=== PATIENT | male | born 1940 | race Caucasian/White ===

== ENCOUNTER 2016-10-02 11:42 | Observation (INO) ==
--- NOTE | 2016-10-02 12:13 | Emergency Department Note ---
Disposition Clinical Impression: Atypical chest pain, Elevated troponin Disposition: Admitted As Inpatient Condition: Good Referrals: Paola Marks, HYPERTRICHOLOGIST [Primary Care Provider] - Forms: ED Satisfaction Letter Time of Disposition: 13:50 General Adult HPI - General Chief complaint: ED Recheck/Abnormal Lab/Rx Stated complaint: nausea Time Seen by Provider: 10/02/16 12:09 Source: patient, family Limitations: no limitations Nursing Notes Reviewed: Yes Vital Signs Reviewed: Yes - History of Present Illness HPI Narrative: 76-year-old male presenting to the emergency department. Yesterday he was at the [place] emergency department where he went in with uncontrollable nausea. Due to his cardiac history, they were concerned for a cardiac event and therefore they did blood work, chest x-ray, and EKG. According to the patient the troponin was slightly increased. The [place] emergency department wanted to transfer him to [place] where he refused and signed out AMA. Today he spoke with his veneer manufacturer who stated he should return to the emergency department and get a further workup. He is in no pain at the moment. He is no longer nauseous. He has no complaints. He had a previous CABG and stent placement in January. He states with his previous cardiac event he felt bilateral shoulder pain. He did not feel the symptoms during this episode. He states he is currently on anticoagulation but does not know the name of it. He states "it is like taking a very big aspirin". Pain Scale: 0 - Related Data Home Medications Medication Instructions Recorded Confirmed Lisinopril [Zestril] 20 mg PO DAILY 10/02/16 10/02/16 Metoprolol [Lopressor] 25 mg PO BID 10/02/16 10/02/16 hydroCHLOROthiazide 12.5 mg PO DAILY 10/02/16 10/02/16 [Hydrochlorothiazide] Previous Rx's Medication Instructions Recorded Aspirin Enteric Coated [Aspirin EC] 81 mg PO DAILY tablet. 02/26/16 Atorvastatin [Lipitor] 40 mg PO HS #30 tablet 02/26/16 Clopidogrel [Plavix] 75 mg PO DAILY #30 tablet 02/26/16 Nitroglycerin 0.4 mg SL Q5MIN PRN #30 tab.subl 02/26/16 Tamsulosin [Flomax] 0.4 mg PO HS #30 capsule 02/26/16 Allergies Allergy/AdvReac Type Severity Reaction Status Date / Time No Known Allergies Allergy Verified 10/02/16 12:02 Constitutional: Denies: fever, chills, weakness Eyes: Reports: as per HPI ENT ED: Reports: as per HPI Cardiovascular: Denies: chest pain, palpitations, dyspnea on exertion Respiratory: Denies: cough, dyspnea, wheezes Gastrointestinal: Denies: abdominal pain, nausea, vomiting, diarrhea, constipation, hematemesis, melena, hematochezia Genitourinary: Reports: as per HPI Musculoskeletal: Reports: as per HPI Integumentary: Reports: as per HPI Neurological: Denies: headache, weakness Psychiatric: Reports: as per HPI Endocrine: Reports: as per HPI Hematological/Lymphatic: Reports: as per HPI Allergic/Immunologic: Reports: as per HPI Past Medical History - Past Medical History Medical history: Reports: arthritis, GERD, hypertension, myocardial infarction, other Surgical history: Reports: no surgical history Psychiatric history: Reports: no psych history - Social History Smoking Status: Never smoker Smokeless Tobacco Status: No Alcohol use: Reports: none Drug use: Reports: none Physical Exam - General Limitations: no limitations General appearance: alert, in no apparent distress - Head Head exam: atraumatic, normocephalic - Eye Eye exam: Present: normal appearance - ENT ENT exam: normal exam - Neck Neck exam: Present: normal inspection - Chest Chest inspection: Present: normal inspection, symmetric chest wall rise, other ( Midline vertical surgical scar over the sternum). Absent: tenderness - Respiratory Respiratory exam: Present: normal lung sounds bilaterally. Absent: respiratory distress, wheezes - Cardiovascular Cardiovascular exam: Present: regular rate, normal rhythm - Abdominal Exam Abdominal exam: Present: soft, Non-Tender. Absent: distention, guarding - Psychiatric Psychiatric exam: Present: normal affect, normal mood - Skin Skin exam: Present: warm, dry, intact Course Course Narrative: 76-year-old male presenting to the emergency department after leaving AMA from another emergency department yesterday after a diagnosed increase in troponin. Due to his cardiac history of previous increased troponin we will do a cardiac workup. - Reevaluation(s) Reevaluation #1: After receiving the blood work, the patient's troponin is still increased at 0.05. An aspirin will be given. He is currently being anticoagulated already. A call to the hospitalist will be sent out. Reevaluation #2: Spoke with the hospitalist on-call Dr. Fu. She agrees to accept the patient. He is currently being anticoagulated at home with an oral medication for his post stent placement. An aspirin was given in the ED. Time: 13:49 Vital Signs Temperature 97.6 F 10/02/16 11:57 Pulse Rate 62 10/02/16 11:57 Respiratory Rate 16 10/02/16 11:57 Blood Pressure 164/88 10/02/16 11:57 O2 Sat by Pulse Oximetry 96 10/02/16 11:57 Temperature 97.6 F 10/02/16 11:57 Pulse Rate 67 10/02/16 13:15 Respiratory Rate 16 10/02/16 13:15 Blood Pressure 120/57 10/02/16 13:15 O2 Sat by Pulse Oximetry 97 10/02/16 13:15 Oxygen Delivery Oxygen Delivery Room Air Medical Decision Making - Medical Records Medical records reviewed: Yes I reviewed the patient's medical records. - Lab Data Lab results reviewed: Yes I reviewed the patient's lab results. Result diagrams: 10/02/16 12:20 10/02/16 12:21 Lab Results 10/02/16 10/02/16 10/02/16 Range/Units 12:20 12:20 12:21 WBC 17.1 H (4.3-11.1) K/mcL RBC 4.59 (4.19-5.50) M/mcL Hgb 13.5 (12.9-16.9) g/dL Hct 39.7 (37.5-50.1) % MCV 86.5 (83.0-100.0) fL MCH 29.4 (28.0-33.3) pg MCHC 34.0 (31.6-35.5) g/dL RDW 13.2 (11.5-14.5) % Plt Count 160 (140-400) K/mcL MPV 10.0 (9.4-12.4) fL Immature Gran % 0.4 (0-4) % Seg Neutrophils % 82.3 % Lymphocytes % 8.1 % Monocytes % 8.4 % Eosinophils % 0.4 % Basophils % 0.4 % Neutrophils # 14.1 H (1.6-8.9) K/mcL Lymphocytes # 1.4 (0.6-4.6) K/mcL Monocytes # 1.4 H (0.0-1.3) K/mcL Eosinophils # 0.1 (0.0-0.6) K/mcL Basophils # 0.1 (0.0-0.2) K/mcL Sodium 137 (136-145) mEq/L Potassium 3.8 (3.5-4.5) mEq/L Chloride 103 (98-109) mEq/L Carbon Dioxide 26 (19-29) mEq/L BUN 22 (8-26) mg/dL Creatinine 1.11 (0.72-1.25) mg/dL Est GFR ( Amer) > 60 (> 60) Est GFR (Non-Af Amer) > 60 (> 60) BUN/Creatinine Ratio 20 (6-26) Glucose 132 H (70-99) mg/dL Calculated Osmolality 289 (280-300) Calcium 9.3 (8.6-10.8) mg/dL Total Bilirubin 1.6 H (0.2-1.2) mg/dL Direct Bilirubin 0.8 H (0.0-0.5) mg/dL Indirect Bilirubin 0.8 (0.0-1.2) mg/dL AST 16 (5-34) Units/L ALT < 6 (0-55) Units/L Alkaline Phosphatase 82 (38-126) Units/L Troponin I 0.05 H* (0-0.03) ng/mL Serum Total Protein 7.2 (6.0-8.3) g/dL Albumin 3.6 (3.5-5.0) g/dL Globulin 3.6 H (2.4-3.5) g/dL Albumin/Globulin Ratio 1.0 L (1.1-2.2) Lipase < 10 (8-78) Units/L - Radiology Data Radiology results reviewed: Yes I reviewed the patient's radiology results. - EKG Data EKG #1 EKG results narrative: Rate of 63. Normal sinus rhythm. Left axis deviation. AK interval 150. QRS 106. Corrected QT 435. Patient has inverted T waves located in V5 and V6 as well as V4. These T-wave inversions were partially seen on EKG from earlier in the day. seem to be more pronounced at this time Attestation Statement - Attestation Attestation: I examined this patient and my medical decision-making was reviewed with the LANDING GEAR MECHANIC/PA/Advanced Practice Nurse/Resident Physician. I agree with the documented findings, disposition and treatment plan as described except to the extent set forth below.
[2016-10-02 12:30] LABS: Basophils # 0.1 K/mcL (0.0-0.2); Basophils % 0.4 %; Eosinophils # 0.1 K/mcL (0.0-0.6); Eosinophils % 0.4 %; Hematocrit 39.7 % (37.5-50.1); Hemoglobin 13.5 g/dL (12.9-16.9); Immature Granulocytes % 0.4 % (0-4); Lymphocytes # 1.4 K/mcL (0.6-4.6); Lymphocytes % 8.1 %; Mean Corpuscular Hemoglobin 29.4 pg (28.0-33.3); Mean Corpuscular Volume 86.5 fL (83.0-100.0); Monocytes # 1.4 K/mcL (0.0-1.3); Monocytes % 8.4 %; Neutrophils # 14.1 K/mcL (1.6-8.9); Platelet Count 160 K/mcL (140-400); Red Blood Count 4.59 M/mcL (4.19-5.50); Red Cell Distribution Width 13.2 % (11.5-14.5); Segmented Neutrophils % 82.3 %
[2016-10-02 12:47] LABS: Albumin 3.6 g/dL (3.5-5.0); Alkaline Phosphatase 82 Units/L (38-126); Aspartate Amino Transferase 16 Units/L (5-34); BUN/Creatinine Ratio 20 (6-26); Bilirubin,Direct 0.8 mg/dL (0.0-0.5); Bilirubin,Indirect 0.8 mg/dL (0.0-1.2); Bilirubin,Total 1.6 mg/dL (0.2-1.2); Blood Urea Nitrogen 22 mg/dL (8-26); Calcium 9.3 mg/dL (8.6-10.8); Carbon Dioxide 26 mEq/L (19-29); Chloride 103 mEq/L (98-109); Globulin 3.6 g/dL (2.4-3.5); Glucose 132 mg/dL (70-99); Osmolality,Calculated 289 (280-300); Potassium 3.8 mEq/L (3.5-4.5); Sodium 137 mEq/L (136-145); Total Protein 7.2 g/dL (6.0-8.3); eGFR For African Americans > 60 (> 60); eGFR For Non-African Americans > 60 (> 60)
[2016-10-02 12:48] LABS: Alanine Aminotransferase < 6 Units/L (0-55); Lipase < 10 Units/L (8-78)
[2016-10-02] MEDS ORDERED: Aspirin 325 MG TABLET PO ONE (13:32)
[2016-10-02] MEDS ORDERED: Naloxone 0.4 MG/ML INJ IVP PRN (15:27)
[2016-10-02] MEDS ORDERED: Acetaminophen 325 MG TABLET PO PRN (15:27)
[2016-10-02] MEDS ORDERED: Nitroglycerin 0.4 MG TAB.SUBL SL PRN (15:31)
--- NOTE | 2016-10-02 15:39 | Internal Med History&Physical ---
Date of Encounter: 10/02/16 Time of Encounter: 15:34 Assessment and Plan (1) Atypical chest pain Current visit: Yes Status: Acute 1 Patient has been expereicning nausea with no other associated sx. He has a cardiac history: He was hospitalized in January [address]-elevation myocardial infarction, underwent diagnostic cardiac catheterization which showed severe three-vessel CAD with completely occluded proximal RCA. Patient had a PCI with bare metal stent in the proximal RCA which was felt to be the infarct-related vessel. However he also had 90% distal left main stenosis, 70% proximal LAD stenosis, 50% mid LAD stenosis, 80% proximal circumflex stenosis, and the RCA intervention resulted in 50% to 60% residual distal RCA lesion. Subsequently patient underwent aortocoronary bypass grafting in February 19, 2016. His bypass surgery included NESS to LAD, SVG to obtuse marginal branch one and SVG graft to the right PDA. Suspect nausea CP equivalent, He was seen at an outlying facility where he had elevated troponin and was to be transferred to [place] for further tx, however he signed out AMA. Today he is not experiencing any nausea, troponin 0.05 We will continue to trend troponin last echo 08/2015 which showed an EF of 5560% with mild diastolic dysfunction 2 continue with aspirin plavix statin and beta pilar 3 nitroglycerin as needed for chest pain 4Continuous cardiac monitoring 5 consult cardiology as needed (2) Elevated troponin Current visit: Yes Status: Acute 1 we will continue to trend troponins 2 continue his cardiac monitoring 3 consult cardiology as needed (3) Leukocytosis Current visit: Yes Status: Acute 1noted WBC 17.1-no fevers or chills chest x-ray negative-we will obtain urinalysis to rule out infectious process-suspect reactive will continue to monitor CBC Qualifiers: Leukocytosis type: unspecified Qualified Code(s): D72.829 - Elevated white blood cell count, unspecified (4) Hypertension Current visit: No Status: Chronic 1 presently controlled we will continue with home medications 2 low sodium diet Qualifiers: Hypertension type: essential hypertension Qualified Code(s): I10 - Essential (primary) hypertension (5) DVT prophylaxis Current visit: Yes Status: Acute [facility] ELE[facility] Internal Medicine - H&P: HPI Chief complaint: elevated troponin Admitted From: Emergency Dept Plans for Post Hospital Care: Home History of present illness: Mr. Crisostomo is a 76 year old male past medical history of coronary disease with stent and CABG hypertension hyperlipidemia. Yesterday patient awoke he was experiencing nausea which continued throughout the day. He denies any vomiting fevers chills abdominal pain shortness of breath chest pain. He was encouraged by his brother to go to the ER for evaluation. He went to an outlying facility where his workup revealed elevated troponin, the ER physician wanted to transfer patient to [place] however patient declined and signed out AMA. The patient states his symptoms resolved on their own. This a.m. his notified Dr. Best of patient's symptoms and visits to the ER. He encouraged patient to go to the ER for evaluation. Patient presented to the ER presently not expecting any chest pain shortness breath nausea diaphoresis. Lab was obtained which did reveal an elevated troponin at 0.05 EKG with some t wave inversions which are present in previous EKG obtained earlier today chest x-ray with no acute processes. He has been admitted for further workup evaluation. Presently patient denies any chest pain or shortness of breath. He appears to be sinus rhythm on the monitor vital signs are stable lungs sounds are clear heart sounds are regular S1 and S2 with no rubs clicks, murmurs noted abdomen soft nontender no pedal edema. I reviewed his case with who agrees with plan. Past Med Surg Social Fam HX - Past Medical History Medical history: arthritis, GERD, hypertension, myocardial infarction, other Psychiatric history: no psych history - Past Surgical History Surgical History: no surgical history - Social History Smoking Status: Never smoker Smokeless Tobacco Status: No Alcohol use: none Drug use: none - Family History Mother Living Status: Hx Family Cardiac Disorders: Yes (unspecified heart disease) Internal Medicine - H&P: Meds Aspirin Enteric Coated [Aspirin EC] 81 mg PO DAILY tablet.dr 02/26/16 [Rx] Atorvastatin [Lipitor] 40 mg PO HS #30 tablet 02/26/16 [Rx] Clopidogrel [Plavix] 75 mg PO DAILY #30 tablet 02/26/16 [Rx] Nitroglycerin 0.4 mg SL Q5MIN PRN #30 tab.subl 02/26/16 [Rx] Tamsulosin [Flomax] 0.4 mg PO HS #30 capsule 02/26/16 [Rx] Lisinopril [Zestril] 20 mg PO DAILY 10/02/16 [History] Metoprolol [Lopressor] 25 mg PO BID 10/02/16 [History] hydroCHLOROthiazide [Hydrochlorothiazide] 12.5 mg PO DAILY 10/02/16 [History] Allergies No Known Allergies Allergy (Verified 10/02/16 12:02) All Systems PM: A 10-system review of systems was performed and is negative for pertinent findings except as documented above in the HPI. - Constitutional Constitutional: no chills, no fever(s), no night sweats - EENT Eyes: no change in vision, no discharge, no pain, no photophobia Ears: no ear discharge, no ear pain, no tinnitus Nose, mouth and throat: no dysphagia, no nasal discharge, no neck pain, no sore throat - Cardiovascular Cardiovascular ROS IM: no chest pain, no diaphoresis, no dyspnea, no lightheadedness, no palpitations, no syncope - Respiratory Respiratory: no cough, no dyspnea, no wheezing, no excessive phlegm production - Gastrointestinal Gastrointestinal: nausea, no abdominal pain, no diarrhea, no hematemesis, no hematochezia, no melena, no vomiting - Musculoskeletal Musculoskeletal ROS IM: no numbness, no tingling - Integumentary Integumentary IM: no rash, no unusual bruising - Neurological Neurological ROS: no confusion, no convulsions, no focal weakness, no numbness, no tingling, no tremor(s) - Hematologic/Lymphatic Hematologic/Lymphatic: no easy bruising - Constitutional Vitals: Temp Pulse Resp BP Pulse Ox 97.6 F 58 16 149/81 96 10/02/16 11:57 10/02/16 14:10 10/02/16 14:10 10/02/16 14:10 10/02/16 14:10 General appearance: Present: A&O X 3, answers questions appropriately - Head Head exam: Present: atraumatic, normocephalic - Eye Eye exam: Present: PERRL, conjuntiva pink, sclera anicteric Pupils: Present: PERRL - Neck Neck exam general surgery: Present: supple, trachea midline. Absent: lymphadenopathy - Respiratory Respiratory exam: Present: CTAB. Absent: accessory muscle use, rales, rhonchi, wheezes - Cardiovascular Cardiovascular exam: Present: RRR, +S1, +S2. Absent: diastolic murmur, gallop, rubs, systolic murmur - GI/Abdominal GI/Abdominal exam: Present: normal bowel sounds, soft, no peritoneal signs. Absent: distended, tenderness - Extremities Exam Extremities exam: Present: warm, radial pulses palpable and symetrical. Absent : calf tenderness, cyanotic, pedal edema - Neurological Exam Neurological exam: Present: CN II-XII intact, oriented X3, no focal deficits. Absent: pronater drift, facial droop, speech deficit - Skin Skin exam: Present: dry, intact Internal Med - H&P Results - Labs CBC & Chem 7: 10/02/16 12:20 10/02/16 12:21 - EKG Data EKG shows normal: sinus rhythm - EKG Data EKG comments: 10/02/16 15:45 L axis deviation t wave inversion in lateral leads - Diagnostic Studies Chest x-ray Additional comments: Chest X-Ray 10/02/16 12:09 IMPRESSION: No acute process. Stable cardiomegaly D/ / Price Joya MD / Price Joya MD Interpreting Provider: Price Joya MD
--- NOTE | 2016-10-02 17:56 | Event Note ---
Date of Encounter: 10/02/16 Time of Encounter: 16:00 Patient seen and evaluated along doe nurse practitioner, detailed history, assessment and plan per SHEET ROCK TAPER HELPER H&P; 76-year-old male with history of coronary artery disease status post CABG and stents, hypertension and hyperlipidemia who was sent from the [place] urgent care due to elevated troponin. Patient reportedly presented to emergency room in [place] due to persistent nausea and vomiting and was noted to have slightly elevated troponin and was recommended transfer to [place] due to which he left AGAINST MEDICAL ADVICE. His discussed this with his campaign manager Dr. Best today, who recommended to present to emergency room. Patient is noted to have troponin of 0.05 and is admitted for further monitoring. Patient is seen and examined at bedside. Denies chest pain, nausea, vomiting or any other complaints at this time. Awake, alert and oriented. Chest-S1, S2 heard, regular rate. Lungs are clear to auscultation bilaterally EKG reviewed independently, shows normal sinus rhythm with Q waves in inferior and anteroseptal leads Reviewed labs-WBC 17.1, troponin 0.05 Elevated troponin-monitor for ACS. Continue telemetry monitoring, cycle troponins. Continue aspirin, Plavix, beta pilar and statin. Cardiology consult if necessary. Check 2-D echocardiogram. Leukocytosis-likely stress related due to emesis. Check urine reflex microscopy and culture.
[2016-10-02 21:59] LABS: Bilirubin,Urine Negative (Negative); Blood,Urine Negative (Negative); Clarity,Urine Clear (Clear); Color,Urine Yellow (Yellow); Glucose,Urine (UA) Normal (Normal); Ketones,Urine Negative (Negative); Leukocyte Esterase,Urine Negative (Negative); Nitrite,Urine Negative (Negative); Protein,Urine Negative (Neg-Trace); Specific Gravity,Urine 1.018 (1.010-1.025); Urobilinogen,Urine Normal (Normal)
[2016-10-03 00:47] LABS: Basophils # 0.1 K/mcL (0.0-0.2); Basophils % 0.5 %; Eosinophils # 0.2 K/mcL (0.0-0.6); Eosinophils % 1.8 %; Hematocrit 37.5 % (37.5-50.1); Hemoglobin 12.9 g/dL (12.9-16.9); Immature Granulocytes % 0.3 % (0-4); Lymphocytes # 1.1 K/mcL (0.6-4.6); Lymphocytes % 10.1 %; Mean Corpuscular HGB Conc 34.4 g/dL (31.6-35.5); Mean Corpuscular Volume 87.2 fL (83.0-100.0); Mean Platelet Volume 10.6 fL (9.4-12.4); Monocytes % 9.1 %; Neutrophils # 8.7 K/mcL (1.6-8.9); Platelet Count 152 K/mcL (140-400); Red Cell Distribution Width 13.4 % (11.5-14.5); Segmented Neutrophils % 78.2 %
[2016-10-03 01:02] LABS: BUN/Creatinine Ratio 21 (6-26); Blood Urea Nitrogen 23 mg/dL (8-26); Calcium 9.1 mg/dL (8.6-10.8); Carbon Dioxide 26 mEq/L (19-29); Chloride 104 mEq/L (98-109); Cholesterol 113 mg/dL (< 200); Glucose 151 mg/dL (70-99); HDL Cholesterol 38 mg/dL (40-59); LDL Cholesterol,Calculated 56 mg/dL (0-99); Magnesium 2.1 mg/dL (1.6-2.6); Osmolality,Calculated 293 (280-300); Potassium 3.5 mEq/L (3.5-4.5); Sodium 138 mEq/L (136-145); Triglycerides 97 mg/dL (< 150); eGFR For African Americans > 60 (> 60); eGFR For Non-African Americans > 60 (> 60)
--- NOTE | 2016-10-03 06:38 | Electrocardiograph Report ---
[facility] Test Date: 2016-10-02 Pat Name: Flores Crisostomo Department: 102 Room: 3B45 Gender: M [employer]: : [id number] Requested By: Farida Trujillo Order Number: [id number] Reading MD: Donald Kinney MD Measurements Intervals [place] Rate: 63 P: 56 DE: 150 QRS: -32 QRSD: 106 T: 232 QT: 427 QTc: 435 Interpretive Statements SINUS RHYTHM Electronically Signed On 10-03-2016 6:37:12 EDT by Donald Kinney MD
[2016-10-03] MEDS ORDERED: Lisinopril 20 MG TABLET PO SCH (09:00)
[2016-10-03] MEDS ORDERED: Aspirin Enteric Coated 81 MG Tablet PO SCH (09:00)
[2016-10-03] MEDS ORDERED: hydroCHLOROthiazide 25 MG TABLET PO SCH (09:00)
--- NOTE | 2016-10-03 14:46 | Cardiology Consult Note ---
Date of Encounter: 10/03/16 Time of Encounter: 14:42 Assessment and Plan (1) Elevated troponin Current Visit: Yes Status: Acute Mild adynamic troponin elevation at 0.05, 0.04, 0.04. Non-diagnostic. Describes symptoms of viral illness. Symptoms not similar to previous IA. No EKG changes. TTE 08/2016- EF 55-60%. Mild hypokenesis of the inferolateral wall. Mild diastolic dysfunction. Mild aortic regurgitation, mild mitral regurgitation. He denies chest pain. No indication for further cardiac testing at this time. Continue asa, statin, and bb. Out pt f/u will be made with [facility]. Call with questions. (2) CAD (coronary artery disease) Current Visit: No Status: Acute Qualifiers: Coronary Disease-Associated Artery/Lesion type: tribal artery [place] vs. transplanted heart: tribal heart Associated angina: without angina Qualified Code(s): I25.10 - Atherosclerotic heart disease of tribal coronary artery without angina pectoris Discussion w patient/family: The assessment and plan as outlined above was discussed with the patient and/or family members who expressed understanding and agreement. All questions were answered. Thank you for involving us in the care of your patient. Please call with any questions. History of Present Illness Consult date: 10/03/16 Requesting physician: Nicky Medeiros Consult reason: elevated troponin Chief complaint: Nausea, chills History of present illness: Mr. Crisostomo is a 76 year old male with past medical history of ST-elevation myocardial infarction 01/2016, S/p PCI and subsequently having CABG (NESS to LAD , SVG to obtuse marginal branch one and SVG graft to the right PDA) 02/18/17. He presented to the ED with the c/o 24 hours of nausea and chills. He denies chest pain. Troponin found to be elevated at 0.05, 0.04, 0.04. Cardiology consulted for further evaluation. Symptoms are not like previous IA. Previous cardiac testing: [facility] showed severe three-vessel CAD with completely occluded proximal RCA. Patient had a PCI with bare metal stent in the proximal RCA which was felt to be the infarct-related vessel. However he also had 90% distal left main stenosis , 70% proximal LAD stenosis, 50% mid LAD stenosis, 80% proximal circumflex stenosis, and the RCA intervention resulted in 50% to 60% residual distal RCA lesion. Past Med Surg Social Fam HX - Past Medical History Medical history: arthritis, GERD, hypertension, myocardial infarction, other Psychiatric history: no psych history - Past Surgical History Surgical History: no surgical history - Social History Smoking Status: Never smoker Smokeless Tobacco Status: No Alcohol use: none Drug use: none - Family History Mother Living Status: Age at : 92 Cause of : cancer of the bowel Hx Family Cardiac Disorders: Yes (unspecified heart disease) Hx Family Cancer: Yes (bowel) Medications and Allergies Aspirin Enteric Coated [Aspirin EC] 81 mg PO DAILY tablet.dr 02/26/16 [Rx] Atorvastatin [Lipitor] 40 mg PO HS #30 tablet 02/26/16 [Rx] Clopidogrel [Plavix] 75 mg PO DAILY #30 tablet 02/26/16 [Rx] Nitroglycerin 0.4 mg SL Q5MIN PRN #30 tab.subl 02/26/16 [Rx] Tamsulosin [Flomax] 0.4 mg PO HS #30 capsule 02/26/16 [Rx] Lisinopril [Zestril] 20 mg PO DAILY 10/02/16 [History] Metoprolol [Lopressor] 25 mg PO BID 10/02/16 [History] hydroCHLOROthiazide [Hydrochlorothiazide] 12.5 mg PO DAILY 10/02/16 [History] Allergies No Known Allergies Allergy (Verified 10/02/16 12:02) All Systems Review: A 10-system review of systems was performed and is negative for pertinent findings except as documented above in the HPI. Physical Examination Vital Signs, Last 4 Hours Temp Pulse Resp BP Pulse Ox 10/03/16 11:28 98.1 F 54 14 160/79 97 General: Conversant, No Apparent Distress HEENT: Atraumatic, Normocephaly, Mucus Membranes Moist Neck: No JVD, Normal carotid pulses Cardiac: Reg Rate and Rhythm, Normal S1 and S2, No Murmur Lungs: Normal Breath Sounds, No Wheeze, Rales, Rhonchi Neuro: Alert and responsive, No focal deficits noted Abdomen: Soft, Non-Tender Skin: No rashes noted on visualized skin Musculoskeletal: No Chest Wall Tenderness Extremities: No Clubbing, No Cyanosis, No Edema, Normal Pulses Results 10/03/16 00:23 10/03/16 00:23 Lab Results 10/02/16 10/03/1610/03/17 18:52 00:23 00:23 WBC 11.1 Hgb 12.9 Hct 37.5 Plt Count 152 Sodium Potassium Chloride Carbon Dioxide BUN Creatinine Glucose Calcium Magnesium Troponin I 0.04 H* 0.04 H* 10/03/16 10/03/16 00:23 10:39 WBC Hgb Hct Plt Count Sodium 138 Potassium 3.5 Chloride 104 Carbon Dioxide 26 BUN 23 Creatinine 1.10 Glucose 151 H Calcium 9.1 Magnesium 2.1 Troponin I 0.04 H* - EKG Interpretation EKG results cardiology: personally reviewed (r with no acute ST changes. Non specific T wave changes.) Consult Discharge Plan - Plan Referrals: Paola Marks, CLERICAL ASSISTANT [Primary Care Provider] - 10/13/16 1:30 pm
[2016-10-03 15:28] VITALS: BP 162/81
--- NOTE | 2016-10-03 16:12 | Discharge Summary ---
Date of Encounter: 10/03/16 Time of Encounter: 15:00 - Discharge Diagnosis (1) Atypical chest pain Priority: Primary Status: Resolved Comments: Patient's nausea was initially concerned for possible atypical chest pain presentation. Troponins were trended and remained mild, adynamic and stable. Cardiology brought on board, low suspicion for ACS. Patient denied any chest pain or shortness of breath. His nausea resolved as well and he was able to tolerate a regular diet. (2) Elevated troponin Priority: Primary Status: Acute Comments: Trended back down. Seen per cardiology, low suspicion for acute coronary syndrome. Cleared for outpatient follow-up. (3) Hypertension Priority: Secondary Status: Chronic Comments: Uncontrolled. At home, patient is on 12.5 mg of HCTZ, 20 mg of lisinopril, 25 mg of metoprolol twice a day. Bradycardic at times, we will not adjust his metoprolol. Renal functioning normal, will increase his lisinopril and have him follow up closely outpatient Qualifiers: Hypertension type: essential hypertension Qualified Code(s): I10 - Essential (primary) hypertension (4) Leukocytosis Priority: Primary Status: Resolved Comments: Likely stress related. No signs of active infection Qualifiers: Leukocytosis type: unspecified Qualified Code(s): D72.829 - Elevated white blood cell count, unspecified (5) CAD (coronary artery disease) Priority: Secondary Status: Chronic Qualifiers: Coronary Disease-Associated Artery/Lesion type: bypass graft Three Affiliated vs. transplanted heart: [place] heart Associated angina: without angina Qualified Code(s): I25.810 - Atherosclerosis of coronary artery bypass graft(s) without angina pectoris (6) S/P CABG (coronary artery bypass graft) Priority: Secondary Status: Chronic (7) DVT prophylaxis Priority: Primary Status: Acute Comments: Observation patient. Up ad cherelle. - Discharge Medications Prescriptions: Lisinopril [Zestril] 40 mg PO DAILY #30 tablet Home Medications: Aspirin Enteric Coated [Aspirin EC] 81 mg PO DAILY tablet. 02/26/16 [Rx] Atorvastatin [Lipitor] 40 mg PO HS #30 tablet 02/26/16 [Rx] Clopidogrel [Plavix] 75 mg PO DAILY #30 tablet 02/26/16 [Rx] Nitroglycerin 0.4 mg SL Q5MIN PRN #30 tab.subl 02/26/16 [Rx] Tamsulosin [Flomax] 0.4 mg PO HS #30 capsule 02/26/16 [Rx] Metoprolol [Lopressor] 25 mg PO BID 10/02/16 [History] hydroCHLOROthiazide [Hydrochlorothiazide] 12.5 mg PO DAILY 10/02/16 [History] Lisinopril [Zestril] 40 mg PO DAILY #30 tablet 10/03/16 [Rx] Allergies/Adverse Reactions: Allergies No Known Allergies Allergy (Verified 10/02/16 12:02) Date of admission: 10/02/16 15:10 Primary care physician: Paola Marks CNP Consults: 10/03/16 14:26 Consult to Cardiology [CONS] Routine Comment: Consulting Provider: Cardiology Lilly Reason for Consult: seen at [facility] 2 days ago for nausea, troponin elevated. [facility] wanted to send to [facility]- pt left AMA. trops borderline and adynamic here. just had cabgx3 in january 2016. safe to d/c? has not seen cards outpatient yet (provider unavailability- Dr Best) Time Notified: 14:27 Call Completed: Yes Discharging clinician: Nicky Medeiros Anticipated date of discharge: 10/03/16 - Patient Status Disposition: Home, Self-Care Condition: Good Functional capacity at discharge: independent ambulation Overall status at discharge: patient is back to baseline - Discharge Instructions Follow Up With: Paola Marks CNP [Primary Care Provider] - 10/13/16 1:30 pm Neno Best MD [Partnered Physician] - Additional Instructions: Follow-up with primary care provider as scheduled, follow-up with cardiology within 1-2 weeks. Check blood pressure daily. Follow-up appointments: If there is not an appointment listed below, please call your physician and schedule a follow-up appointment. If you have congestive heart failure and your symptoms return, make an appointment with your physician. Medication List: Carry an up to date list of medications you are taking at all time. We have given you an updated medication list including any new medications that you have been prescribed. Please provide that list to your primary provider Symptoms: If your condition changes or you experience any of the following symptoms, notify your physician immediately: Unusual or worsening pain, fever, persistent nausea and vomiting, bleeding, increase in swelling (especially in your legs), sudden weight gain, extreme dizziness, chest pain, increased drainage or redness from a wound or incision. Go to the emergency department if you experience a problem with breathing. Weights: If you have a history of swelling or shortness of breath, weigh yourself daily and notify your physician if you have a weight gain of two or more pounds in one day or 5 or more pounds in a week. If you experience any of the warning signs for stroke: Sudden numbness or weakness of the face, arm or leg; especially on one side of the body, sudden confusion, trouble speaking or understanding, sudden trouble seeing in one or both eyes, sudden trouble walking, dizziness, loss of balance or coordination, sudden sever headache with no cause; Call 911 or go to the emergency room. Stroke is a medical emergency. Some risk factors for stroke: Age, cigarette smoking, diabetes, excessive alcohol consumption, family history , high blood pressure, overweight, physical inactivity, prior stroke, heart attack, diagnosis of carotid artery stenosis or other artery disease. If you smoke, STOP: Smoking or tobacco use significantly increases your risk of heart and lung disease. Your chance of disease greatly increases if you continue to smoke. For more information, call the [employer] tobacco quit line for smoking cessation QUIT-NOW ( ) - Diet and Activity Activity: increase activity as tolerated Diet: low fat, low cholesterol, low salt diet Hospital course: Mr. Crisostomo is a 76 year old male with past medical history of CAD status post CABG, hypertension, hyperlipidemia. Patient woke up on the day prior to presentation and was experiencing nausea which had continued throughout the day. He denied any fevers, vomiting, abdominal pain, shortness of breath, chest pain but he was encouraged by his brother to go to the emergency department for evaluation. He went to another facility and during his workup, his troponin was elevated in the ER physician had wanted to transfer the patient to [facility] but the patient declined and he left [facility]. Patient stating that his symptoms resolved on their own. The next day which was the day of his presentation at [facility], his had notified his pecan picker Dr. Best of the patient's symptoms and his visit to the ER and he was encouraged to come back to [facility]'s emergency Department. Upon presentation, patient denied chest pain, shortness of breath, nausea or diaphoresis. Initial elevated troponin 0.05. EKG did have some T-wave inversions present. Chest x- ray negative. Patient was admitted to the hospitalist service for further evaluation and management. His troponins were trended and remained adynamic, flat, stable 6. The patient remained asymptomatic and was able to tolerate a regular diet well admitted. Cardiology was brought on board considering that the patient had just had CABG 3 in January of last year. He is yet to follow up with his primary pecan picker secondary to provider unavailability. Cardiology cleared the patient for outpatient follow-up and surmised this was likely demand ischemia secondary to possible viral illness. He was hypertensive during this admission and his lisinopril was increased and he was instructed to check his blood pressure daily, keep a log, and follow-up with his primary care provider. He was discharged home in stable condition with close outpatient follow-up recommended. ITS Impressions Chest X-Ray 10/02/16 12:09 IMPRESSION: No acute process. Stable cardiomegaly D/ / Price Joya MD / Price Joya MD Interpreting Provider: Price Joya MD - Time Spent with Patient Total time spent providing and/or coordinating discharge services: - Constitutional Vitals: Temp Pulse Resp BP Pulse Ox 98.0 F 65 16 162/81 93 10/03/16 15:27 10/03/16 15:27 10/03/16 15:27 10/03/16 15:27 10/03/16 15:27 General appearance: Present: A&O X 3, pleasant, no acute distress, answers questions appropriately - Head Head exam: Present: atraumatic, normocephalic - Eye Eye exam: Present: PERRL, conjuntiva pink, sclera anicteric Pupils: Present: PERRL - Neck Neck exam general surgery: Present: supple, trachea midline. Absent: lymphadenopathy - Respiratory Respiratory exam: Present: CTAB. Absent: accessory muscle use, rales, respiratory distress, rhonchi, wheezes - Cardiovascular Cardiovascular exam: Present: RRR, +S1, +S2. Absent: diastolic murmur, gallop, rubs, systolic murmur - GI/Abdominal GI/Abdominal exam: Present: normal bowel sounds, soft, no peritoneal signs. Absent: distended, tenderness - Extremities Exam Extremities exam: Present: warm, radial pulses palpable and symetrical. Absent : calf tenderness, cyanotic, pedal edema - Neurological Exam Neurological exam: Present: alert, CN II-XII intact, normal gait, oriented X3, no focal deficits, strengths equal and symetr throughout. Absent: pronater drift, facial droop, speech deficit - Skin Skin exam: Present: dry, intact, normal color, warm
== END 2016-10-03 16:48 | disposition home or self-care (01) ==
LOC: 3BNU 11:42 → EMEROO 11:42 → 3BNU 15:36
PROVIDERS: ADMIT Internal Medicine; ATTEND Nurse Practitioner Family